=== PATIENT | female | born 1940 | race Caucasian/White ===

== ENCOUNTER 2018-11-10 19:34 | Emergency (ER) | payer OTHER ==
[~2018-11-10] VITALS: Ht 154.9 cm; Wt 92.1 kg
[2018-11-10] MEDS ORDERED: METFORMIN HCL500 MG (19:53)
[2018-11-10] MEDS ORDERED: NAMENDA10 MG (19:54)
[2018-11-10] MEDS ORDERED: ASPIR 8181 MG (19:54)
[2018-11-10] MEDS ORDERED: ZOCOR20 MG (19:54)
[2018-11-10] MEDS ORDERED: HYDROCHLOROTH12.5 MG (19:54)
[2018-11-10] MEDS ORDERED: AVAPRO150 MG (19:54)
== END 2018-11-10 20:53 | disposition home or self-care (01) ==
LOC: EMR PED 19:34 → ER 19:37
DX: S90.415A Abrasion, left lesser toe(s), initial encounter (principal); S90.414A Abrasion, right lesser toe(s), initial encounter; S80.212A Abrasion, left knee, initial encounter; W55.03XA Scratched by cat, initial encounter; Y93.89 Activity, other specified; Y92.89 Other specified places as the place of occurrence of the external cause; Y99.8 Other external cause status